=== PATIENT | male | born 1985 | race Caucasian/White ===

== ENCOUNTER 2021-09-11 02:35 | Emergency (ER) | payer OTHER ==
[~2021-09-11] VITALS: Ht 180.3 cm; Wt 81.6 kg
[2021-09-11] MEDS ORDERED: TETANUS-DIPTH-ACEL PERTUSSIS 0.5ML SYR Tdap IM ONE (03:00)
[2021-09-11] MEDS ORDERED: ceFAZolin 1GM/50ML 100 ML IV ONE (03:00)
[2021-09-11] MEDS ORDERED: IOHEXOL 350 MG/ML 100ML IJ ONE (03:07)
[2021-09-11 03:11] LABS: Basophils # (auto) 0.2 10 ^3/uL (0-0.2); Basophils % (auto) 1.6 % (0.0-2.0); Eosinophils # (auto) 0.3 10 ^3/uL (0-0.8); Eosinophils % (auto) 2.8 % (0.0-7.0); Hematocrit 41.1 % (41.0-53.0); Hemoglobin 14.3 g/dL (13.5-17.5); Lymphocytes # (auto) 1.5 10 ^3/uL (0.4-5.4); Lymphocytes % (auto) 14.1 % (10.0-50.0); Mean Corpuscular Hemoglobin 31.4 pg (28.0-32.0); Mean Corpuscular Hgb Conc. 34.8 g/dL (32.0-36.0); Mean Corpuscular Volume 90.1 fL (80.0-100.0); Monocytes # (auto) 0.8 10 ^3/uL (0-1.3); Monocytes % (auto) 7.7 % (0.0-12.0); Neutrophils # (auto) 7.9 10 ^3/uL (1.6-8.6); Neutrophils % (auto) 73.8 % (37.0-80.0); Nucleated Red Blood Cells % 0.1 %; Red Blood Cells 4.56 10^6/uL (4.5-5.90); Red Cell Distribution Width 13.8 % (11.8-14.3); White Blood Cell 10.7 10^3/uL (4.4-10.8)
[2021-09-11] MEDS ORDERED: SODIUM CHLORIDE 0.9% 2,000 ML IV ONE (03:15)
[2021-09-11 03:27] LABS: Albumin 3.6 g/dL (3.4-5.0); BUN/Creatinine Ratio 15.4; Calcium 9.6 mg/dL (8.5-10.1); Potassium 3.7 mmol/L (3.5-5.1)
[2021-09-11 03:30] LABS: Bilirubin, Total 0.3 mg/dL (0.2-1.0); Total Protein 8.2 g/dL (6.4-8.2)
[2021-09-11 03:38] LABS: INR 0.99 (0.9-1.15)
[2021-09-11] MEDS ORDERED: GENTAMICIN SULFATE 400 MG in D5W 5% 100 ML IV ONE (05:15)
[2021-09-11 05:37] LABS: Amphetamine Screen, Urine POSITIVE (NEGATIVE); Barbiturate Scree,Urine NEGATIVE (NEGATIVE); Benzodiazephine Screen, Urine NEGATIVE (NEGATIVE); Cannabinoid Screen, Urine POSITIVE (NEGATIVE); Cocaine Screen, Urine NEGATIVE (NEGATIVE); Opiate Scree,Urine NEGATIVE (NEGATIVE); Phencyclidine Screen, Urine NEGATIVE (NEGATIVE)
[2021-09-11 05:41] LABS: Urine Bacteria MANY /hpf (None Seen); Urine Blood Negative /uL (Negative); Urine Hyaline Cast MOD /lpf (0 - 2); Urine Mucus FEW (None Seen); Urine Specific Gravity 1.035 (1.001-1.035); Urine WBC 2 /hpf (0 - 3)
[2021-09-11] MEDS ORDERED: HYDROmorphone HCL 2 MG/ML VL IV ONE (05:45)
[2021-09-11] MEDS ORDERED: ONDANSETRON HCL 4 MG/2 ML VIAL IV ONE (05:45)
[2021-09-11 06:23] VITALS: BP 105/74
== END 2021-09-11 06:49 | disposition short-term general hospital (02) ==
LOC: ER 02:35
DX: S72.492A Other fracture of lower end of left femur, initial encounter for closed fracture (principal); Z20.822 Contact with and (suspected) exposure to COVID-19; W34.00XA Accidental discharge from unspecified firearms or gun, initial encounter; Y93.89 Activity, other specified; Y92.89 Other specified places as the place of occurrence of the external cause; Y99.8 Other external cause status
CPT/HCPCS: 36415; 71045; 73552; 73706; 80053; 80307; 80320; 81001; 85025; 85610; 86850; 86900; 86901; 87426; 90471; 90715; 96365; 96375; 99285; J0690; J1170; J1580; J2405; J7060; Q9967